=== PATIENT | female | born 1965 | race Caucasian/White ===

== ENCOUNTER 2017-07-26 11:03 | Inpatient (IN) | payer BC ==
[~2017-07-26] VITALS: Ht 167.6 cm; Wt 117.1 kg
[~2017-07-26 11:03] MED LIST: NONE PER PT
[2017-07-26] MEDS ORDERED: LACTATED RINGERS 1,000 ML IV SCH (11:27)
[2017-07-26] MEDS ORDERED: GABAPENTIN 300 MG CAPSULE PO ONE (11:30)
[2017-07-26] MEDS ORDERED: ACETAMINOPHEN 500 MG TABLET PO ONE (11:30)
[2017-07-26 11:46] VITALS: BP 137/79
[2017-07-26 12:32] LABS: HCG UR LOT HCG7030192
[2017-07-26 12:36] LABS: HCG UR OBC PASS
[2017-07-26] MEDS ORDERED: cloniDINE/PF 100 MCG/ML, 10 ML ONE (12:59)
[2017-07-26] MEDS ORDERED: INDOCYANINE GREEN 25 MG VIAL ONE (13:00)
[2017-07-26] MEDS ORDERED: BUPIVACAINE/PF 0.5% ONE (13:02)
[2017-07-26] MEDS ORDERED: PROPOFOL 10 MG/ML, 20ML ONE (13:10)
[2017-07-26] MEDS ORDERED: GLYCOPYRROLATE 0.2MG/1ML, 5ML ONE (13:10)
[2017-07-26] MEDS ORDERED: HYDROmorphone 1 MG/ML, 1ML ONE ×3 (13:10→16:16)
[2017-07-26] MEDS ORDERED: FENTANYL PF 100 MCG/2ML ONE ×3 (13:10→15:31)
[2017-07-26] MEDS ORDERED: ROCURONIUM 10 MG/ML ONE (13:10)
[2017-07-26] MEDS ORDERED: CEFAZOLIN 1,000 MG ONE (13:10)
[2017-07-26] MEDS ORDERED: NEOSTIGMINE 1 MG/ML, 10ML ONE (13:10)
[2017-07-26] MEDS ORDERED: LIDOCAINE-MPF 2% ,5ML ONE (13:10)
[2017-07-26] MEDS ORDERED: ONDANSETRON 2MG/ML, 2ML ONE (13:10)
[2017-07-26] MEDS ORDERED: DEXAMETHASONE 4 MG/ML, 1ML ONE (13:10)
[2017-07-26] MEDS ORDERED: SUCCINYLCHOLINE 20 MG/ML, 10ML ONE (13:10)
[2017-07-26] MEDS ORDERED: hydrALAzine 20 MG/ML, 1ML IV PRN (14:00)
[2017-07-26] MEDS ORDERED: PROMETHAZINE 25 MG/ML, 1ML IV PRN (14:00)
[2017-07-26] MEDS ORDERED: MEPERIDINE/PF 25MG/0.5ML IVPush PRN (14:00)
[2017-07-26] MEDS ORDERED: LABETALOL 5MG/ML, 20ML IV PRN (14:00)
[2017-07-26] MEDS ORDERED: MIDAZOLAM 1 MG/ML, 2ML IV PRN (14:00)
[2017-07-26] MEDS ORDERED: ONDANSETRON 2MG/ML, 2ML IVPush PRN (14:00)
[2017-07-26] MEDS ORDERED: ACETAMINOPHEN 325 MG TABLET PO PRN (14:00)
[2017-07-26] MEDS ORDERED: OXYcodone 5 MG/5 ML ORAL.SOL UDC PO PRN (14:00)
[2017-07-26] MEDS ORDERED: ACETAMINOPHEN 650 MG/20.3 ML UDC ONE (15:30)
[2017-07-26] MEDS ORDERED: OXYcodone 5 MG/5 ML ORAL.SOL UDC ONE (15:31)
[2017-07-26] MEDS: HYDROmorphone 1 MG/ML, 1ML IV PRN ×4 (15:33→16:32)
[2017-07-26] MEDS: FENTANYL PF 100 MCG/2ML IV PRN ×2 (15:37→15:54)
[2017-07-26 17:15] VITALS: BP 108/55
[2017-07-26] MEDS ORDERED: HYDROmorphone 1 MG/ML, 1ML IV PRN (18:00)
[2017-07-26] MEDS ORDERED: DIPHENHYDRAMINE 50 MG/ML, 1ML IV PRN (18:00)
[2017-07-26] MEDS ORDERED: DIPHENHYDRAMINE 25 MG CAPSULE PO PRN (18:00)
[2017-07-26] MEDS ORDERED: LORazepam 2 MG/ML, 1ML IV PRN (18:00)
[2017-07-26] MEDS ORDERED: LORazepam 1MG TABLET PO PRN (18:00)
[2017-07-26] MEDS ORDERED: ONDANSETRON 2MG/ML, 2ML IV PRN (18:00)
[2017-07-26] MEDS: POTASSIUM CHLORIDE 20 MEQ in D5%-0.45% NACL 1,000 ML IV SCH (18:21)
[2017-07-26 19:07] VITALS: BP 115/76
[2017-07-26] MEDS: IBUPROFEN 600 MG TABLET PO SCH (21:42)
[2017-07-26] MEDS: ACETAMINOPHEN 500 MG TABLET PO SCH (21:43)
[2017-07-26 23:10] VITALS: BP 115/74
[2017-07-27] MEDS ORDERED: FLU VACC QS2017-18 (36MOS+) UP/PF 0.5 ML IM-VACC ONE (01:30)
[2017-07-27 03:02] VITALS: BP 101/62
[2017-07-27 03:34] LABS: HEMATOCRIT 38.9 % (34.6-47.8); HEMOGLOBIN 12.9 g/dL (11.7-16.4); WHITE BLOOD COUNT 9.6 x10^3/uL (3.4-10)
[2017-07-27 03:40] LABS: BLOOD UREA NITROGEN 13 mg/dL (7-18)
[2017-07-27] MEDS: ACETAMINOPHEN 500 MG TABLET PO SCH ×4 (04:07→22:09)
[2017-07-27] MEDS: OXYcodone 5 MG/5 ML ORAL.SOL UDC PO PRN ×4 (06:19→21:07)
[2017-07-27 08:14] VITALS: BP 109/71
[2017-07-27] MEDS: IBUPROFEN 600 MG TABLET PO SCH ×3 (08:28→21:04)
[2017-07-27] MEDS: ENOXAPARIN 40 MG/0.4 ML SQ SCH (11:59)
[2017-07-27] MEDS: POTASSIUM CHLORIDE 20 MEQ in D5%-0.45% NACL 1,000 ML IV SCH (14:12)
[2017-07-27 14:40] VITALS: BP 100/63
[2017-07-27 18:41] VITALS: BP 106/68
[2017-07-28 02:00] VITALS: BP 101/65
[2017-07-28] MEDS: OXYcodone 5 MG/5 ML ORAL.SOL UDC PO PRN ×2 (03:15→08:53)
[2017-07-28] MEDS: ACETAMINOPHEN 500 MG TABLET PO SCH ×2 (03:45→11:11)
[2017-07-28 05:17] LABS: HEMATOCRIT 35.6 % (34.6-47.8); HEMOGLOBIN 11.9 g/dL (11.7-16.4)
[2017-07-28 05:31] LABS: BLOOD UREA NITROGEN 15 mg/dL (7-18)
[2017-07-28 08:46] VITALS: BP 108/71
[2017-07-28] MEDS: IBUPROFEN 600 MG TABLET PO SCH (08:53)
[2017-07-28] MEDS: POTASSIUM CHLORIDE 20 MEQ in D5%-0.45% NACL 1,000 ML IV SCH (10:24)
[2017-07-28] MEDS ORDERED: OXYC5CAP2 PO (10:36)
[2017-07-28] MEDS: ENOXAPARIN 40 MG/0.4 ML SQ SCH (12:00)
== END 2017-07-28 11:00 | disposition home or self-care (01) | DRG 331 ==
LOC: ORIP 11:03 → 4NOR 17:14
PROVIDERS: ADMIT Surgery; ATTEND Surgery
PROC: 8E0W0CZ Robotic Assisted Procedure of Trunk Region, Open Approach (ICD-10-PCS; 2017-07-26)
PROC: 0D1N0ZP Bypass Sigmoid Colon to Rectum, Open Approach (ICD-10-PCS; 2017-07-26)
PROC: 0DTN0ZZ Resection of Sigmoid Colon, Open Approach (ICD-10-PCS; principal; 2017-07-26 13:00)
PROC: 3E0234Z Introduction of Serum, Toxoid and Vaccine into Muscle, Percutaneous Approach (ICD-10-PCS; 2017-07-27)
DX: D37.4 Neoplasm of uncertain behavior of colon (principal); Z23 Encounter for immunization
CPT/HCPCS: 36415; 80048; 81025; 82040; 85025; 86850; 86900; 86922; 86923; 88309; 90686; J0690; J1100; J1170; J1650; J2405; J2704; J2710; J3010; J3480; J3490; J0330; J0735; J1200; J7120